=== PATIENT | male | born 1980 | race Caucasian/White ===

== ENCOUNTER 2017-12-16 17:08 | Observation (INO) ==
[2017-12-16 17:25] VITALS: TEMP 98.3
[2017-12-16 17:32] VITALS: RESP 17
--- NOTE | 2017-12-16 18:02 | XR ---
EXAM DATE: 12/16/2017 5:40 PM EDT AGE/SEX: 37 years / Male INDICATIONS: Chest pain since this morning. CLINICAL DATA: This is the patient's initial encounter. Patient reports that signs and symptoms have been present for 1 day and indicates a pain score of 5/10. MEDICAL/SURGICAL HISTORY: None. None. COMPARISON: No prior exams available for comparison. FINDINGS: A single AP view of the chest demonstrates the lungs to be symmetrically aerated without evidence of mass, infiltrate or effusion. The cardiomediastinal contours are unremarkable. Osseous structures a re intact. CONCLUSION: Negative examination. Electronically signed by: Dejan Bills MD 12/16/2017 6:00 PM EDT
[2017-12-16 18:20] LABS: Baso # (Auto) 0.1 th/mm3 (0.0-0.2); Baso % (Auto) 0.5 % (0.0-2.0); Eos # (Auto) 0.3 th/mm3 (0.0-0.4); Eos % (Auto) 2.6 % (0.0-4.0); Hemoglobin 15.5 gm/dL (13.0-17.0); Lymph % (Auto) 25.4 % (9.0-44.0); Mean Corpuscular HGB Conc 34.4 % (32.0-36.0); Mean Corpuscular Hemoglobin 28.4 pg (27.0-34.0); Mean Corpuscular Volume 82.7 fL (80.0-100.0); Mean Platelet Volume 8.9 fL (7.0-11.0); Mono % (Auto) 8.3 % (0.0-8.0); Neut # (Auto) 7.5 th/mm3 (1.8-7.7); Neut % (Auto) 63.2 % (16.0-70.0); Platelet Count 256 th/mm3 (150-450); Red Blood Count 5.44 mil/mm3 (4.50-5.90); Red Cell Distribution Width 14.2 % (11.6-17.2); White Blood Count 11.8 th/mm3 (4.0-11.0)
--- NOTE | 2017-12-16 18:31 | ED ---
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 Patient works as a lawn care provider. He reports that today at the end of his day, he was getting ready to mow the lawn when he started experiencing left-sided chest pain. Patient reports that chest pressure and sharp like. He reports it radiates to the left lateral chest wall. He reports associated diaphoresis and nausea. There was no vomiting. He reported mild shortness of breath. He states the pain was a 6-7 on the pain scale. Related Data Home Medications Medication Instructions Recorded Confirmed No Known Home Medications 12/16/17 12/16/17 Allergies Allergy/AdvReac Type Severity Reaction Status Date / Time No Known Allergies Allergy Verified 12/16/17 17:34 Review of Systems ROS: all other systems reviewed are negative Constitutional Reports system reviewed and no additional complaints, except as docu Eyes Reports system reviewed and no additional complaints, except [facility] Reports system reviewed and no additional complaints, except as docu Cardiovascular Reports chest pain, Reports diaphoresis and Reports dyspnea Respiratory Denies chest congestion, Denies cough and Reports dyspnea Gastrointestinal Denies abdominal pain, Reports nausea and Denies vomiting Genitourinary Reports system reviewed and no additional complaints, except as docu Musculoskeletal Reports system reviewed and no additional complaints, except as [facility] Neurologic Reports system reviewed and no additional complaints, except as docu PMFSH Social History Social History Substance History: Active Abuse Second Hand Smoke Exposure: Yes Smoking Status: Current every day smoker Tobacco Type: Cigarettes How Often Do You Have a Drink Containing Alcohol: Never Recent Travel in [facility] within the Last 8 Weeks: No Recent Out of Country Travel within the Last 8 Weeks: No Substance Abuse Detail Marijuana: Substance Use Status: Active Route Used Substance Abuse: Inhalation Reason for Use: Calm Down Immunization History Tetanus Immunization: <5 Years Exam Narrative Exam Narrative: GENERAL: Well-developed well-nourished male in no acute respiratory distress. SKIN: Focused skin assessment warm/dry. HEAD: Atraumatic. Normocephalic. EYES: No scleral icterus. No injection or drainage. ENT: No nasal bleeding or discharge. Mucous membranes pink and moist. NECK: Trachea midline. Supple. CARDIOVASCULAR: Regular rate and rhythm. No murmur appreciated. RESPIRATORY: No accessory muscle use. Clear to auscultation. Breath sounds equal bilaterally. GASTROINTESTINAL: Abdomen soft, non-tender, nondistended. Hepatic and splenic margins not palpable. MUSCULOSKELETAL: No obvious deformities. No clubbing. No cyanosis. No edema. NEUROLOGICAL: Awake and alert. No obvious cranial nerve deficits. Motor grossly within normal limits. Normal speech. Course Initial Documented Vital Signs Temperature 98.3 F 12/16/17 17:23 Pulse Rate 99 H 12/16/17 17:23 Blood Pressure 173/86 H 12/16/17 17:23 Pulse Oximetry 96 12/16/17 17:23 Last Documented Vital Signs Temperature 98.3 F 12/16/17 17:23 Pulse Rate 98 H 12/16/17 18:38 Respiratory Rate 17 12/16/17 18:38 Blood Pressure 114/66 12/16/17 18:38 Pulse Oximetry 100 12/16/17 18:38 Medical Decision Making [facility] Narrative Medical decision making narrative: 37-year-old male with a reported history of coronary artery disease, 3 MIs, who presented today with complaints of chest pain while at work. Patient has a left bundle branch block on his EKG that he reports is not new. Cardiac enzymes are within normal limits Given his reported history and bundle branch block which we do not have one on record of, the patient will be placed in the chest pain center. He is pain-free at the time of my evaluation and reexamination. He has been given 1 aspirin and had 1 inch of nitro paste placed on his anterior chest wall. Medical Screen Exam Complete: Yes Emergency Medical Condition: Yes Differential Diagnosis Differential Diagnosis: ACS versus musculoskeletal pain versus bronchitis versus peptic ulcer disease Lab Data Result diagrams: 12/16/17 17:50 12/16/17 17:50 Lab Results 12/16/17 12/16/17 Range/Units 17:50 17:50 WBC 11.8 H (4.0-11.0) th/mm3 RBC 5.44 (4.50-5.90) mil/mm3 Hgb 15.5 (13.0-17.0) gm/dL Hct 45.0 (39.0-51.0) % MCV 82.7 (80.0-100.0) fL MCH 28.4 (27.0-34.0) pg MCHC 34.4 (32.0-36.0) % RDW 14.2 (11.6-17.2) % Plt Count 256 (150-450) th/mm3 MPV 8.9 (7.0-11.0) fL Neut % (Auto) 63.2 (16.0-70.0) % Lymph % (Auto) 25.4 (9.0-44.0) % [facility] % (Auto) 8.3 H (0.0-8.0) % Eos % (Auto) 2.6 (0.0-4.0) % Baso % (Auto) 0.5 (0.0-2.0) % Neut # (Auto) 7.5 (1.8-7.7) th/mm3 Lymph # (Auto) 3.0 (1.0-4.8) th/mm3 [facility] # (Auto) 1.0 H (0.0-0.9) th/mm3 Eos # (Auto) 0.3 (0.0-0.4) th/mm3 Baso # (Auto) 0.1 (0.0-0.2) th/mm3 WBC Differential . Differential Comment Auto diff final Sodium 138 (136-145) meq/L Potassium 3.9 (3.5-5.1) meq/L Chloride 105 (98-107) meq/L Carbon Dioxide 24.9 (21.0-32.0) meq/L Anion Gap 8 (5-15) meq/L BUN 12 (7-18) mg/dL Creatinine 1.20 (0.60-1.30) mg/dL Estimated GFR 68 L (>89) mL/min Random Glucose 130 H (74-106) mg/dL Calcium 8.6 (8.5-10.1) mg/dL Total Bilirubin 0.4 (0.2-1.0) mg/dL AST 40 H (15-37) U/L ALT 66 (12-78) U/L Alkaline Phosphatase 117 (45-117) U/L Total Creatine Kinase 264 (39-308) U/L CK-MB (CK-2) 2.5 (0.5-3.6) ng/mL Troponin I Less than 0.02 L (0.02-0.05) ng/mL Total Protein 8.5 H (6.4-8.2) g/dL Albumin 3.6 (3.4-5.0) g/dL Lipase 117 (73-393) U/L Imaging Data Radiologist's impression: Chest X-Ray 12/16/17 17:40 CONCLUSION: Negative examination. Discharge Plan Discharge Disposition Patient Disposition: 30 Still Patient Discharge Details Diagnosis: Chest pain, History of coronary artery disease, Tobacco use Physicians Team ED Provider: Dennis Ramon Primary Care Provider: Primary Care Carly Childers Attending Provider: Mejia Watts Discharge Interventions Interventions: Vital Signs Last Done: 12/16/17 17:32 Status ED Status: Admitted Observation Patient
[2017-12-16 18:39] VITALS: BP 114/66; PULSE 98
[2017-12-16 18:49] LABS: Albumin 3.6 g/dL (3.4-5.0); Anion Gap 8 meq/L (5-15); Aspartate Aminotransferase 40 U/L (15-37); Blood Urea Nitrogen 12 mg/dL (7-18); Calcium 8.6 mg/dL (8.5-10.1); Carbon Dioxide 24.9 meq/L (21.0-32.0); Chloride 105 meq/L (98-107); Glomerular Filtration Rate 68 mL/min (>89); Glucose,Random 130 mg/dL (74-106); Lipase 117 U/L (73-393); Potassium 3.9 meq/L (3.5-5.1); Sodium 138 meq/L (136-145)
[2017-12-16 18:50] LABS: Alanine Aminotransferase 66 U/L (12-78)
[2017-12-16 18:54] LABS: Alkaline Phosphatase 117 U/L (45-117); Creatine Kinase 264 U/L (39-308); Total Protein 8.5 g/dL (6.4-8.2)
[2017-12-16 19:06] LABS: Creatine Kinase MB 2.5 ng/mL (0.5-3.6)
[2017-12-16 19:33] VITALS: O2SAT 96
[2017-12-16 20:32] LABS: Troponin I 0.02 ng/mL (0.02-0.05)
--- NOTE | 2017-12-17 21:24 | ECG ---
Date Performed: 12/16/2017 Time Performed: 19:52:50 PTAGE: 37 years EKG: Sinus rhythm LEFT BUNDLE BRANCH BLOCK Since the previous tracing, no significant change noted ABNORMAL ECG PREVIOUS TRACING : 12/16/2017 17.30 DOCTOR: Mejia Watts Interpretating Date/Time 12/17/2017 21:23:26
--- NOTE | 2017-12-17 21:24 | ECG ---
Date Performed: 12/16/2017 Time Performed: 17:30:40 PTAGE: 37 years EKG: Sinus rhythm LEFT BUNDLE BRANCH BLOCK ABNORMAL ECG NO PREVIOUS TRACING DOCTOR: Mejia Watts Interpretating Date/Time 12/17/2017 21:23:01
== END 2017-12-16 20:49 | disposition left against medical advice (07) ==
LOC: NEPC 17:08 → NEDA 17:08 → NEPHCDU 20:40